=== PATIENT | female | born 1945 | race Caucasian/White ===

== ENCOUNTER → 2017-09-13 | Outpatient (CLI) | payer MEDICARE, BC | LOC: MHCPAIN 13:07 | DX: G89.29 Other chronic pain (principal); M47.27 Other spondylosis with radiculopathy, lumbosacral region; M79.1 Myalgia; Z87.891 Personal history of nicotine dependence | CPT/HCPCS: G0463 ==

== ENCOUNTER → 2017-09-19 | Outpatient (CLI) | payer MEDICARE, BC | LOC: MHCPAIN 10:13 | DX: G57.01 Lesion of sciatic nerve, right lower limb (principal) | CPT/HCPCS: J1040 ==

== ENCOUNTER → 2017-10-17 | Outpatient (CLI) | payer MEDICARE, BC | LOC: MHCPAIN 10:33 | DX: G89.29 Other chronic pain (principal); M47.27 Other spondylosis with radiculopathy, lumbosacral region; M53.3 Sacrococcygeal disorders, not elsewhere classified; Z87.891 Personal history of nicotine dependence | CPT/HCPCS: G0463 ==

== ENCOUNTER → 2017-10-19 | Outpatient (CLI) | payer MEDICARE, BC | LOC: MHCPAIN 13:01 | DX: M47.27 Other spondylosis with radiculopathy, lumbosacral region (principal); M99.53 Intervertebral disc stenosis of neural canal of lumbar region | CPT/HCPCS: J1100; Q9967 ==

== ENCOUNTER 2019-02-07 11:46 | Outpatient (CLI) | payer MEDICARE, BC ==
[2019-02-07] VITALS (10 sets, daily range): BP systolic 121–161; BP diastolic 65–91; PULSE 65–96; TEMP 97.9
[~2019-02-07] VITALS: Ht 172.7 cm; Wt 88.9 kg
[~2019-02-07 11:46] MED LIST: B-12 500 MCG PO; CRESTOR20 MG PO; MASON NATURAL2000 IU PO; TYLENOL 500MG500 MG PO
[2019-02-07] MEDS ORDERED: PRILOSEC 20MG20 MG PO (12:05)
--- NOTE | 2019-02-07 13:25 | NUR ---
Pt to [facility] 11 per cart s/p LP. Pt katja well. Pt resting well in bed.
--- NOTE | 2019-02-07 14:45 | NUR ---
Pt has ambulated with crutch and SBA and voided s difficulty.
--- NOTE | 2019-02-07 15:05 | NUR ---
Pt katja PO intake s n/v. Pt discharged per w/c by nurse with .
== END 2019-02-07 15:23 | disposition home or self-care (01) ==
LOC: COL.RAD 11:46
DX: M47.817 Spondylosis without myelopathy or radiculopathy, lumbosacral region (principal); M48.07 Spinal stenosis, lumbosacral region; M51.27 Other intervertebral disc displacement, lumbosacral region; Z96.641 Presence of right artificial hip joint
CPT/HCPCS: Q9965